=== PATIENT | male | born 1955 | race Caucasian/White ===

== ENCOUNTER 2019-09-12 22:36 | Emergency (ER) | payer BC, SELFPAY ==
[2019-09-12 22:51] VITALS: PULSE 187; RESP 16; TEMP 37.1; O2SAT 95; BMI 27.1
[2019-09-12 22:55] VITALS: BP 115/74
[2019-09-12 23:20] VITALS: BP 115/74; PULSE 188
[2019-09-12] MEDS: dilTIAZem 5 MG/ML SDV 20 MG IV (23:20)
[2019-09-12] MEDS: SODIUM CHLORIDE 0.9% 1,000 ML 150 ML IV (23:21)
--- NOTE | 2019-09-12 23:29 | PC.NURSE ---
10mg initial push, no response, additional 10mg push, now in NSR. Patient report feeling no different. BP is in patient normal range now at 125/70, HR 100
[2019-09-12 23:30] LABS: BUN Creatinine Ratio 24.5 (6-22); Blood Urea Nitrogen 27 mg/dL (9-20); Calcium 9.6 mg/dL (8.4-10.2); Carbon Dioxide 21 mmol/L (22-32); Chloride 104 mmol/L (98-107); Estimated Glomerular Filt Rate > 60.0 mL/min (>60); Glucose 133 mg/dL (80-110); HEMOLYSIS 26 (0-50); Magnesium 2.4 mg/dL (1.6-2.3); Potassium 3.9 mmol/L (3.4-5.1); Sodium 140 mmol/L (137-145)
[2019-09-12 23:31] VITALS: BP 125/70; PULSE 100
[2019-09-12 23:35] LABS: Add Manual Diff / Slide Review NO; Basophils Absolute Auto 100 /uL (0-100); Basophils Percent Auto 1.1 % (0-2); Eosinophils Absolute Auto 300 /uL (0-450); Hematocrit 48.2 % (41-53); Hemoglobin 16.9 g/dL (13.5-17.5); Lymphocytes Absolute Auto 2500 /uL (1100-4500); Lymphocytes Percent Auto 25.6 % (25-40); Mean Corpuscular HGB Conc 35.1 % (30-36); Mean Corpuscular Hemoglobin 33.3 PG (26-34); Mean Corpuscular Volume 94.8 fL (80-100); Monocytes Absolute Auto 1200 /uL (0-900); Neutrophils Absolute Auto 5800 /uL (1500-7000); Neutrophils Percent Auto 58.3 % (50-75); Platelet Count 274 X10^3/uL (150-400); Red Blood Cell Count 5.08 X10^6/uL (4.5-5.9); Red Cell Distribution Width 13.2 % (11.6-14.8); White Blood Cell Count 9.9 X10^3/uL (4.5-11.0)
--- NOTE | 2019-09-12 23:58 | ED_ITS ---
HPI - Arrhythmia/Palpitations General Chief Complaint: Arrhythmia/Palpitations Stated Complaint: elevated HR Time Seen by Provider: 09/12/19 22:42 Source: patient Mode of arrival: Ambulatory Limitations: no limitations History of Present Illness HPI narrative: 64-year-old male nonsmoker with noncontributory medical history presents with a chief complaint of a rapid heart rate in the 190s and was alerted by his what. He denies any other symptoms such as dizziness, weakness or lightheadedness. He has no chest pain, shortness of breath or cough. He denies nausea, vomiting or diarrhea. He states he thinks this started earlier today. He has had perhaps a few other episodes earlier in life but this is not a regularly occurring scenario. He is under a significant amount of stress at work. He denies significant caffeine, alcohol no. Related Data Allergies Allergy/AdvReac Type Severity Reaction Status Date / Time No Known Drug Allergies Allergy Verified 09/12/19 23:19 Review of Systems Constitutional Constitutional: Denies chills, Denies fatigue, Denies fever(s), Denies frequent falls, Denies lethargy and Denies weakness Eyes Eyes: Denies change in vision, Denies eye discharge, Denies irritation and Denies loss of vision ENT Ears, Nose, Mouth, and Throat: Denies change in voice, Denies dizziness, Denies neck pain, Denies sore throat and Denies throat swelling Cardiovascular Cardiovascular: Denies chest pain, Denies irregular heart rhythm, Denies lightheadedness, Reports palpitations, Denies dyspnea, Denies dyspnea on exertion and Denies orthopnea Respiratory Respiratory: Denies cough, Denies dyspnea, Denies dyspnea on exertion and Denies wheezing Gastrointestinal Gastrointestinal: Denies abdominal pain, Denies change in bowel habits, Denies diarrhea, Denies nausea and Denies vomiting Genitourinary Genitourinary: Denies hematuria, Denies flank pain, Denies urinary incontinence and Denies urinary urgency Musculoskeletal Musculoskeletal: Denies back pain, Denies muscle weakness, Denies neck pain, Denies numbness and Denies tingling Integumentary/Breasts Skin/Breast: Denies pruritus, Denies erythema, Denies rash and Denies wounds Neurologic Neurologic: Denies behavioral changes, Denies confusion, Denies dizziness, Denies frequent falls, Denies loss of vision, Denies numbness, Denies tingling and Denies weakness Psychiatric Psychiatric: Denies anxiety, Denies behavioral changes, Denies confusion, Denies depression, Denies homicidal ideation and Denies suicidal ideation Endocrine Endocrine: Denies fatigue, Denies flushing and Reports palpitations Hematologic/Lymphatic Hematologic/Lymphatic: Denies easy bruising Allergic/Immunologic Allergic/Immunologic: Denies urticaria, Denies throat swelling and Denies wheezing Patient History Social History Smoking Status: Never smoker Smoking Status: Never smoker alcohol intake frequency: 3 or more drinks per day Substance Use Type: does not use Exam Narrative Exam Narrative: GENERAL: [64] year old patient appears stated age. Well- nourished, well-developed patient, in mild distress. HEAD: Atraumatic. Normocephalic. EYES: Pupils equal round and reactive. Extraocular motions intact. No scleral icterus. No injection or drainage. ENT: Nose without bleeding, purulent drainage. Throat without erythema, tonsillar hypertrophy or exudate. Airway patent. NECK: Trachea midline. Non tender CARDIOVASCULAR: tachycardic but regular rhythm without murmurs, gallops, or rubs. RESPIRATORY: Clear to auscultation. Breath sounds equal bilaterally. No wheezes, rales, or rhonchi. GASTROINTESTINAL: Abdomen soft, non-tender, nondistended. EXTREMITIES: No edema or joint tenderness. BACK: Nontender without deformity or crepitance. No flank tenderness. NEURO: AOx3. SKIN: No rash or erythema of visible areas Initial Vital Signs Initial Vital Signs: Vital Signs Temperature 98.8 F 09/12/19 22:51 Pulse Rate 187 H 09/12/19 22:51 Respiratory Rate 16 09/12/19 22:51 Pulse Oximetry 95 09/12/19 22:51 Course Course Course Narrative: Patient given Cardizem as stated and within minutes as a conversion to a sinus rhythm in the 90s. He is observed for some time in the aftermath and is completely asymptomatic. He has been given return precautions and had questions answered to his satisfaction. Orders Ordered: ED Orders 09/12/19 22:52 EKG-12 Lead Routine EKG-12 Lead Routine 09/12/19 23:00 Basic Metabolic Panel Stat Complete Blood Count AUTO DIFF Stat Magnesium Stat Discontinued Medications Diltiazem HCl (Cardizem) 20 mg IV NOW ONE Stop: 09/12/19 23:06 Last Admin: 09/12/19 23:20 Dose: 20 mg Documented by: ABEBA Sodium Chloride (Normal Saline 0.9%) 1,000 mls @ 150 mls/hr IV CONT GIULIANO Last Infusion: 09/13/19 00:28 Dose: 0 mls/hr Documented by: Admin: 09/12/19 23:21 Dose: 150 mls/hr Documented by: ABEBA Vital Signs Vital signs: Vital Signs - 8 hr 09/12/19 22:51 09/12/19 22:55 09/12/19 23:20 Temperature 98.8 F Pulse Rate 187 H 188 H Respiratory Rate 16 Blood Pressure 115/74 Blood Pressure [Right Arm] 115/74 Pulse Oximetry 95 09/12/19 23:31 09/13/19 00:25 Temperature Pulse Rate 100 H 92 H Respiratory Rate Blood Pressure 136/81 Blood Pressure [Right Arm] 125/70 Pulse Oximetry 98 MDM - Arrhythmia/Palpitations Lab Data Result diagrams: 09/12/19 23:00 09/12/19 23:00 Labs: Lab Results 09/12/19 09/12/19 Range/Units 23:00 23:00 WBC 9.9 (4.5-11.0) X10^3/uL RBC 5.08 (4.5-5.9) X10^6/uL Hgb 16.9 (13.5-17.5) g/dL Hct 48.2 (41-53) % MCV 94.8 (80-100) fL MCH 33.3 (26-34) PG MCHC 35.1 (30-36) % RDW 13.2 (11.6-14.8) % Plt Count 274 (150-400) X10^3/uL Neut % (Auto) 58.3 (50-75) % Lymph % (Auto) 25.6 (25-40) % [place] % (Auto) 12.0 (3-14) % Eos % (Auto) 3.0 (2-4) % Baso % (Auto) 1.1 (0-2) % Neut # (Auto) 5800 (2055-4242) /uL Lymph # (Auto) 2500 (8678-8199) /uL [place] # (Auto) 1200 H (0-900) /uL Eos # (Auto) 300 (0-450) /uL Baso # (Auto) 100 (0-100) /uL Sodium 140 (137-145) mmol/L Potassium 3.9 (3.4-5.1) mmol/L Chloride 104 (98-107) mmol/L Carbon Dioxide 21 L (22-32) mmol/L BUN 27 H (9-20) mg/dL Creatinine 1.10 (0.66-1.25) mg/dL Estimated GFR > 60.0 (>60) mL/min BUN/Creatinine Ratio 24.5 H (6-22) Glucose 133 H (80-110) mg/dL Calcium 9.6 (8.4-10.2) mg/dL Magnesium 2.4 H (1.6-2.3) mg/dL Discharge Plan Departure Patient Disposition: Home Clinical Impression: Supraventricular tachycardia Discharge Date/Time: 09/13/19 00:01 Instructions: DI for Paroxysmal Supraventricular Tachycardia Activity Restrictions/Additional Instructions: *You have been diagnosed with [SVT, resolved with Cardizem] *What to do: *Take medications as directed *Follow up with your primary care provider in 2-3 days, call for an appointment. Let them know you were seen in the Emergency Department and that we ask that you be seen in follow up *Return to ER if you should have any new, worsening or concerning symptoms
[2019-09-13 00:25] VITALS: BP 136/81; PULSE 92; O2SAT 98
== END 2019-09-13 00:01 | disposition home or self-care (01) ==
PROVIDERS: Emergency Provider Emergency Medicine
DX: I47.1 Supraventricular tachycardia (principal)
CPT/HCPCS: 36415; 80048; 83735; 85025; 93005; 93010; 96361; 96374; 99284